=== PATIENT | female | born 1975 | race Two or more races ===

== ENCOUNTER 2025-04-08 09:02 | Outpatient (RCR) | payer MEDICAID, SELFPAY ==
[2025-04-08 09:45] LABS: HCG Qualitative,Urine Negative
--- NOTE | 2025-04-08 10:00 | XR_ITS ---
Examination: [place], hepatobiliary radioisotope scan Gallbladder ejection fraction study. Date and time of exam: April 08, 2025 1003 hours INDICATIONS: Right upper abdominal pain radiating to the back 9 months with heartburn Technique: 5.8 mCi of 99M Hepatolite administered. Serial imaging then obtained from immediate through 60 minutes. 1.6 mcg selective catheter Kinevac administered for gallbladder ejection fraction study. Findings: Radioisotope activity within the liver is reasonably homogenous. Gallbladder, common bile duct small bowel activity noted Impression: Gallbladder activity Abnormal gallbladder ejection fraction, 19%, normal greater than 35%
== END 2025-04-13 23:59 | disposition home or self-care (01) ==
LOC: SNUC 09:02
PROVIDERS: PCP Family Medicine; Referring Provider Physician Assistant; Visit Provider Physician Assistant
DX: R93.2 Abnormal findings on diagnostic imaging of liver and biliary tract (principal); Z32.00 Encounter for pregnancy test, result unknown
CPT/HCPCS: 78227; 81025; A9537; J2805

== ENCOUNTER 2025-05-01 14:45 | Emergency (ER) | payer MEDICAID, SELFPAY ==
[2025-05-01] VITALS (7 sets, daily range): BP systolic 124–131; BP diastolic 55–81; PULSE 99–147; RESP 16–20; TEMP 36.7–37.8; O2SAT 97–100; BMI 31.5
--- NOTE | 2025-05-01 15:14 | EKG_ITS ---
[facility] Test Date: 2025-05-01 Pat Name: LEXII OLIVARES Department: Room: - Gender: Female [employer]: : 1975 Requested By: ED Temporary Provider Order Number: [id number] Reading MD: ED Temporary Provider Measurements Intervals Brock Rate: 133 P: 53 TX: 155 QRS: 5 QRSD: 97 T: 34 QT: 285 QTc: 425 Interpretive Statements SINUS TACHYCARDIA ST DEVIATION AND MODERATE T-WAVE ABNORMALITY, CONSIDER ANTEROLATERAL ISCHEMIA [-0.1+ mV T-WAVE IN V3-V6] No previous ECG available for comparison /store/S0/[id number]/[id number].pdf
--- NOTE | 2025-05-01 15:32 | XR_ITS ---
Examination: AP chest single view Technique one AP portable upright chest single view Date and time: May 01, 2025 1541 hours INDICATIONS: Chest pain fever beginning one week ago. FINDINGS: Normal heart size Lungs are clear. The osseous structures are intact IMPRESSION: No active disease
--- NOTE | 2025-05-01 15:33 | XR_ITS ---
Examination: Abdomen sonogram, Limited Date and time of exam: May 01, 2025 1553 hours INDICATIONS: Right upper abdominal pain this week. Technique: Real-time kahn scale transabdominal sonographic images of the upper abdomen obtained. Findings: Negative for gallstones Normal gallbladder wall 0.2 cm Normal common bile duct 0.3 cm. Pancreatic head 2.4 cm. Liver 13.1 cm fatty infiltration no focal liver lesions. Normal hepatopedal portal venous flow. Patent IVC. IMPRESSION: Normal gallbladder Fatty infiltration throughout the liver
[2025-05-01 15:57] LABS: Lactate (Lactic Acid) 2.1 mMol/L (0.4-2.0)
[2025-05-01 15:59] LABS: Basophils # (Auto) 0.1 Thou/mm3 (0.0-0.2); Basophils % (Auto) 1 % (0-2.5); Eosinophils # (Auto) 0.3 Thou/mm3 (0.0-0.5); Eosinophils % (Auto) 3 % (0-10); Hematocrit 38.7 % (36.0-46.0); Hemoglobin 12.4 g/dL (12.0-16.0); Immature Granulocytes Auto 0.02 Thou/mm3 (0.00-0.00); Lymphocytes # (Auto) 1.2 Thou/mm3 (1.0-4.8); Lymphocytes % (Auto) 14 % (10-50); Mean Corpuscular HGB Conc 32.0 g/dl (31.0-37.0); Mean Corpuscular Hemoglobin 27.1 pg (25.0-35.0); Mean Corpuscular Volume 85 fL (80-100); Monocytes # (Auto) 0.6 Thou/mm3 (0.0-0.8); Monocytes % (Auto) 6 % (0-12); Neutrophils # (Auto) 6.8 Thou/mm3 (1.8-7.7); Neutrophils % (Auto) 76 % (37-80); Nucleated Red Blood Cell # 0.00 Thou/mm3 (0.00-0.00); Nucleated Red Blood Cell % 0 /100 WBC (0); Platelet Count 323 Thou/mm3 (140-440); RDW Standard Deviation 47.7 fL (36.4-46.3); Red Blood Count 4.58 Miln/mm3 (4.00-5.20); White Blood Count 8.9 Thou/mm3 (3.6-11.0)
[2025-05-01 16:18] LABS: INR 1.0 (0.9-1.3); Partial Thromboplastin Time 25.8 Seconds (22.0-36.0); Prothrombin Time 11.0 Seconds (9.0-12.2)
[2025-05-01 16:29] LABS: B-Type Natriuretic Peptide 74 pg/mL (0-100)
[2025-05-01 16:33] LABS: Alanine Aminotransferase 26 U/L (10-49); Albumin, Serum 4.3 gm/dL (3.5-5.0); Albumin/Globulin Ratio 1.4 (1.2-2.2); Alkaline Phosphatase 99 U/L (46-116); Anion Gap 9 (7-16); Aspartate Amino Transferase 29 U/L (0-34); BUN/Creatinine Ratio 13 Ratio (12-20); Bilirubin,Total 0.3 mg/dL (0.3-1.2); Blood Urea Nitrogen 10 mg/dL (9-23); Calcium 9.1 mg/dL (8.3-10.6); Calcium (Corrected) 9.1 mg/dL (8.5-10.1); Carbon Dioxide 24.4 mMol/L (20.0-31.0); Chloride 109 mMol/L (98-107); Creatinine (Component) 0.8 mg/dL (0.6-1.3); Estimated Creatinine Clearance 80.9 mL/min (>60); Globulin 3.1 gm/dL (2.3-3.5); Glucose 142 mg/dL (74-106); Lipase 28 U/L (12-53); Magnesium 1.6 mg/dL (1.6-2.6); Osmolality,Calculated 284 (275-295); Potassium 3.6 mMol/L (3.4-5.1); Procalcitonin < 0.04 ng/ml (0.0-0.49); Sodium 142 mMol/L (136-145); Total Protein 7.4 gm/dL (5.7-8.2); Troponin I < 0.002 ng/mL (0.0-0.045); eGFR > 60 See Note
--- NOTE | 2025-05-01 17:05 | PD.EDCHEST ---
ED Chest Pain RME/HPI General Chief Complaint: Arrhythmia/Palpitations Stated Complaint: HR 147, SOB, ABD PAIN; SENT BY [facility] Time Seen by Provider: 05/01/25 15:31 Arrival date/time: 05/01/25 14:45 RME / HPI RME / HPI narrative: 49 year old female with history of hypertension currently on Lisinopril presents to the ED referred by PCP at [facility] for evaluation of chest pressure and itchy throat beginning last night. Accompanied by chills, cough, orthopnea, and nausea. States she consulted her PCP today and while in office noted her HR to be 147. Reports she was on Propanolol 1 year ago for irregular heart rhythm. 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 No other associated symptoms reported. Denies fevers. Denies vomiting, diarrhea, constipation. Denies dysuria, urinary frequency and urgency. Related Data Previous Rx's ?Medication ?Instructions ?Recorded ibuprofen 600 mg tablet 1 tab PO [id number] PRN PAIN #30 tabs 10/14/13 aspirin 81 mg tablet,delayed 81 mg PO QDAY #30 tabs 12/10/17 release (Adult Aspirin Regimen) nitrofurantoin 100 mg PO Q12H 3 days #6 caps 05/01/25 monohydrate/macrocrystals 100 mg capsule (Macrobid) Allergies Allergy/AdvReac Type Severity Reaction Status Date / Time sulfamethoxazole (From Allergy Severe Swelling Verified 05/01/25 14:49 Bactrim) of Lip/Tongue/Throat trimethoprim (From Bactrim) Allergy Severe Swelling Verified 05/01/25 14:49 of Lip/Tongue/Throat Review of Systems Review of Systems Systems Reviewed: All systems reviewed, normal except as documented Past Medical History Past Medical History CARDIAC: Positive Hypertension Social History SMOKING STATUS: Never smoker ED Exam Narrative Physical exam: GENERAL APPEARANCE: alert and oriented x 4, well-developed, well-nourished, no acute distress HEENT: Normocephalic, atraumatic; pupils equal, round, reactive to light; EOMI; mucous membranes pink, moist; oropharynx clear NECK: Supple LUNGS: CTABL; no wheezes, no rales, no rhonchi HEART: Tachycardic; normal S1, S2; no murmurs ABDOMEN: non distended; normal BS; soft, no tenderness, no guarding, no rebound; no masses, no organomegaly, no hernia BACK: no CVA tenderness EXTREMITIES: atraumatic; no edema NEUROLOGIC: awake; alert and oriented x4; cranial nerves II-XII grossly intact; no focal sensory or motor deficits PSYCHIATRIC: appropriate mood and affect SKIN: warm, dry, normal color; no rashes Course Quality Measures none Orders Category Date Time Status Bedside COVID-19 Antigen Test NOW Care 05/01/25 16:16 Completed Bedside Influenza A&B Antigen Test NOW Care 05/01/25 16:16 Completed Flower Shop Laborer/Designer NOW Care 05/01/25 15:32 Completed EKG (ED ONLY) *Do not use* NOW Care 05/01/25 15:15 Completed EKG (ED Only) Stat Exams 05/01/25 15:14 Draft US abdomen limited Stat Exams 05/01/25 15:33 Completed XR chest 1V portable Stat Exams 05/01/25 15:32 Completed B-Type Natriuretic Peptide Stat Lab 05/01/25 15:37 Completed Blood Culture (Lab) Stat Lab 05/01/25 15:38 Received CBC Stat Lab 05/01/25 15:37 Completed Comprehensive Metabolic Panel Stat Lab 05/01/25 15:37 Completed D-Dimer Stat Lab 05/01/25 15:37 Completed Lactate (Lactic Acid) Stat Lab 05/01/25 15:37 Completed Lipase Stat Lab 05/01/25 15:37 Completed Magnesium Stat Lab 05/01/25 15:37 Completed Partial Thromboplastin Time Stat Lab 05/01/25 15:37 Completed Procalcitonin Stat Lab 05/01/25 15:37 Completed Prothrombin Time with INR Stat Lab 05/01/25 15:37 Completed Strep A Rapid Stat Lab 05/01/25 17:51 Completed Troponin I Stat Lab 05/01/25 15:37 Completed Urinalysis Stat Lab 05/01/25 17:36 Completed Urine Culture Stat Lab 05/01/25 17:36 Received Morphine Inj Med 05/01/25 16:07 Discontinued 5 mg IVP X1 ONE Ondansetron Inj [Zofran Inj] Med 05/01/25 16:07 Discontinued 4 mg IVP X1 ONE Sodium Chloride 0.9% 1000 ml [Ns] 1,000 ml Med 05/01/25 16:07 Discontinued IV 999 mls/hr Reevaluation(s) Reevaluation #1: We reviewed all the results, analysis, and treatment plans. Patient is amenable to discharge. Strict return precautions were outlined. Patient was discharged in stable condition. Vital Signs Vital signs: Vital Signs Temperature 99.5 F 05/01/25 14:52 Pulse Rate 147 H 05/01/25 14:52 Respiratory Rate 20 05/01/25 14:52 Blood Pressure 131/73 H 05/01/25 14:52 Pulse Oximetry (%) 97 05/01/25 14:52 Oxygen Delivery Method Room Air 05/01/25 14:52 Pulse ox is 97% on room air which is adequate. Chest Pain MDM Narrative MDM Narrative:: IKatlyn am scribing for and in the presence of Dr. Mir. Patient data External records reviewed:: [facility] previous records (I reviewed ED visit on 11/07/2023 ) Clinical information provided by:: patient Social determinants that could affect healthcare access:: none Patient has the following chronic illnesses:: HTN How is presenting disease/condition affected by chronic disease/condition?: exacerbated by Evaluation data The following diagnostics were reviewed and interpreted by me:: lab results, radiology exam(s) and EKG tracing(s) (Sinus tachycardia, rate 133, Q-wave in lead III, slight depression in V3 V4 V5 V6, no reciprocal elevations ) Lab and/or radiology exams considered but not ordered:: None Interpretation Summary: Ordering Physician: Tammy Mir MD Date of Service: 05/01/25 Procedure(s): XR chest 1V portable Accession Number(s): [id number] cc: Bossman Champagne MD; Tammy Mir MD~ Examination: AP chest single view Technique one AP portable upright chest single view Date and time: May 01, 2025 1541 hours INDICATIONS: Chest pain fever beginning one week ago. FINDINGS: Normal heart size Lungs are clear. The osseous structures are intact IMPRESSION: No active disease Dictated By: Bossman Champagne MD Signed By: <Electronically signed by Bossman Champagne MD in OV> 05/01/25 0642 Ordering Physician: Tammy Mir MD Date of Service: 05/01/25 Procedure(s): US abdomen limited Accession Number(s): [id number] cc: Kali Farr MD; Bossman Champagne MD; Tammy Mir MD~ Examination: Abdomen sonogram, Limited Date and time of exam: May 01, 2025 1553 hours INDICATIONS: Right upper abdominal pain this week. Technique: Real-time kahn scale transabdominal sonographic images of the upper abdomen obtained. Findings: Negative for gallstones Normal gallbladder wall 0.2 cm Normal common bile duct 0.3 cm. Pancreatic head 2.4 cm. Liver 13.1 cm fatty infiltration no focal liver lesions. Normal hepatopedal portal venous flow. Patent IVC. IMPRESSION: Normal gallbladder Fatty infiltration throughout the liver Dictated By: Bossman Champagne MD Signed By: <Electronically signed by Bossman Champagne MD in OV> 05/01/25 1659 Medications / Prescriptions Medications or Prescriptions considered but not ordered:: None Medication administrations:: Medication Administration History Discontinued Medications Sodium Chloride (Ns) 1,000 mls @ 999 mls/hr IV .Q1H1M ONE Stop: 05/01/25 17:07 Last Infusion: 05/01/25 19:08 Dose: Infused Documented By: Admin: 05/01/25 17:22 Dose: 999 mls/hr Documented By: DOMINIQUE Morphine Sulfate (Morphine Sulf Inj 10 Mg/Ml Vial) 5 mg IVP X1 ONE Stop: 05/01/25 16:08 Last Admin: 05/01/25 17:23 Dose: 5 mg Documented By: DOMINIQUE Ondansetron HCl (Ondansetron Inj 2 Mg/Ml Inj 2 Ml) 4 mg IVP X1 ONE Stop: 05/01/25 16:08 Last Admin: 05/01/25 17:22 Dose: 4 mg Documented By: DOMINIQUE See above Consultations Consultation(s) initiated? (list below): No Diagnosis Chest Pain Differential Diagnosis: pneumothorax, stable angina, unstable angina pectoris, atypical chest pain, st elevation myocardial infarction, costochondritis and chest pain Most likely diagnosis given after review of the tests above:: Covid Sinus tachycardia UTI Admission Indicated Admission indicated?: not indicated Admission Request Was there a request for admission?: No Disposition Plan Disposition Plan: Discharge Discharge Attestation Discharge Attestation: The patient and all family members were given an opportunity to ask questions and understood the discharge instructions. Discharge instructions specifically effects, indications for sooner follow up or return to the emergency department, and the expected course of current diagnosis. Patient condition: Stable Discharge Plan Plan Patient Disposition: HOME (Self Care) Prescriptions/Referrals Prescriptions/Med Rec: New nitrofurantoin monohyd/m-cryst [Macrobid] 100 mg capsule 100 mg PO Q12H 3 Days Qty: 6 0RF Rx Instructions: must administer with a meal/food No Action ibuprofen 600 MG tablet 1 tab PO [id number] PRN (Reason: PAIN) Qty: 30 0RF aspirin [Adult Aspirin Regimen] 81 mg tablet,delayed release (DR/EC) 81 mg PO QDAY Qty: 30 0RF Referrals: Kali Farr MD [Primary Care Provider] - In 1 week Problem List Clinical Impression: COVID-19, Sinus tachycardia, UTI (urinary tract infection) Patient/Caregiver Discharge Instructions Education Materials: COVID-19 Home Care Print Language: Maori Stand Alone Forms: Fabi Award Info., Patient Portal Info Letter
[2025-05-01] MEDS: ONDANSETRON INJ 2 MG/ML INJ 2 ML 4 MG IVP (17:22)
[2025-05-01] MEDS: SODIUM CHLORIDE 0.9% 1000 ML 1,000 ML 999 ML IV (17:22)
[2025-05-01] MEDS: MORPHINE SULF INJ 10 MG/ML VIAL 5 MG IVP (17:23)
[2025-05-01 17:42] LABS: D-Dimer 368 ng/mL (<600)
[2025-05-01 17:49] LABS: Collection Type, Urine Clean Catch
[2025-05-01 17:54] LABS: Bacteria,Urine Rare; Bilirubin,Urine Negative (Negative); Blood,Urine Trace (Negative); Clarity,Urine Clear (Clear/Hazy); Color,Urine Lt-Yellow (Lt Yel-Yel); Glucose, Urine Negative (Negative); Ketones,Urine Negative (Negative); Leukocyte Esterase,Urine Positive (Negative); Nitrite,Urine Negative (Negative); PH,Urine 6.5 (5.0-7.0); Protein,Urine Negative (Neg - Trace); RBC,Urine 4 /hpf (0-3); Specific Gravity,Urine 1.018 (1.001-1.035); Squamous Epithelial Cell,Urine 2 /hpf (0-5); Urobilinogen,Urine Negative mg/dL (0.0-1.0); WBC,Urine 11 /hpf (0-5)
[2025-05-01 18:33] LABS: Strep A Rapid Negative (Negative)
[2025-05-01 18:56] LABS: Reflex Lactate? Y
== END 2025-05-01 19:27 | disposition home or self-care (01) ==
PROVIDERS: Emergency Provider Emergency Medicine; PCP Family Medicine
DX: U07.1 COVID-19 (principal); N39.0 Urinary tract infection, site not specified; K76.0 Fatty (change of) liver, not elsewhere classified; R00.0 Tachycardia, unspecified; I10 Essential (primary) hypertension
CPT/HCPCS: 36415; 71045; 76705; 80053; 81001; 83605; 83690; 83735; 83880; 84145; 84484; 85025; 85379; 85610; 85730; 87040; 87086; 87400; 87651; 87811; 93005; 96361; 96374; 96375; 99283; J2270; J2405; J7030

== ENCOUNTER 2025-05-29 10:30 | Outpatient (RCR) | payer MEDICAID, SELFPAY ==
--- NOTE | 2025-05-14 11:01 | PTNOTE_ITS ---
PT OP Initial Eval Patient Information Outpatient Physical Therapy Treatment Date: 05/14/25 Visit Reasons: Pain in RT shoulder Medical Diagnosis: M25.511 Treatment Dx #1: R shoulder pain Start of Care: 05/14/25 Date of Onset: 3 months ago Smoking Status Smoking Status: Never smoker Initial Assessment Subjective: Pt is 50 yr old panamanian speaking female reports R shoulder pain since falling off a treadmill at home. Since then she has pain is constant and it goes numb if she lays on that side. Increased pain with reaching OH and lifting things and HH chores. PMH: HTN, arrythmia Imaging: Xray negative according to provider notes Pt goal: to get rid of the pain in R shoulder Objective: R shoulder AROM: ? FF: 95 deg with ++pain ? Abd: 90 deg ? ER: 65 deg ? HBB: to R glute ? Strength: 3+/5 in all planes ? PROM: end-range pain Jany Sauer: positive Amadna's: positive TTP: long head of biceps high Assessment: Pt presents with decreased ROM and pain into FF consistent with labral tear. Pt not likely going to benefit from skilled therapy but we will try some visits to see if she feels any relief. Poor rehab potential to meet goals. PT recommends further diagnostic imaging of R shoulder such as MRI. Short Term and Finisher Accordion Goals 1. Ind with HEP ? 2. Improved AROM of R shoulder to at least 135 deg FF, 125 deg abduction and 90 deg ? ER ? 3. Improved HBB ROM to L3 ? 4. Pt will reach OH x10 with <=4/10 pain Treatment Plan 1. Manual therapy ? 2. Therex ? 3. Modalities as indicated, moist heat pack, ice, electrical stimulation, ? Frequency and Duration: 1-2x a week for 4 weeks plus the evaluation Certification Dates: 05/14/25 to 07/12/25 Procedure Charges OP PT Eval Mod Complex 30 minutes: Yes
--- NOTE | 2025-05-21 16:17 | PT.ODAYNRPT ---
PT Outpatient Daily Note OP Daily Note Outpatient Physical Therapy Treatment Date: 05/21/25 Visit Reasons: Pain in RT shoulder Subjective: Same as time of evaluation Objective: See f/S for therex MHP R shoulder x5' Gave TB and updated HEP Assessment: Some pain with FF AAROM therex today in the R shoulder Plan: Continue per POC Length of Time (minutes) of Treatment: 30 Minutes Procedure Charges Therapeutic Exercise 30 minutes: Yes
--- NOTE | 2025-05-29 13:05 | PT.ODAYNRPT ---
PT Outpatient Daily Note OP Daily Note Outpatient Physical Therapy Treatment Date: 05/29/25 Visit Reasons: Pain in RT shoulder Subjective: Continued R shoulder pain unchanged Objective: See f/S for therex MHP R shoulder x5' Assessment: Some pain with FF AAROM therex today in the R shoulder Plan: Continue per POC Length of Time (minutes) of Treatment: 30 Minutes Procedure Charges Therapeutic Exercise 30 minutes: Yes
--- NOTE | 2025-05-29 16:09 | PT.ODAYNRPT ---
PT Outpatient Daily Note OP Daily Note Outpatient Physical Therapy Treatment Date: 05/29/25 Visit Reasons: Pain in RT shoulder Subjective: Pt brought in by family member, no complaints. Objective: Please see flow sheet for ther ex list. Assessment: Pt instructed on seated knee flexion, pt can reach ~95 deg then guards not able to go further than that. Plan: Continue with pOC. Length of Time (minutes) of Treatment: 30 Minutes Procedure Charges Therapeutic Exercise 30 minutes: Yes
== END 2025-06-02 23:59 | disposition home or self-care (01) ==
LOC: CPTX 10:30
PROVIDERS: PCP Family Medicine; Referring Provider Family Medicine; Visit Provider Family Medicine
DX: M25.511 Pain in right shoulder (principal); I10 Essential (primary) hypertension
CPT/HCPCS: 97110; 97162

== ENCOUNTER 2025-06-18 15:30 | Outpatient (RCR) | payer MEDICAID, SELFPAY ==
--- NOTE | 2025-06-11 15:41 | PT.ODAYNRPT ---
PT Outpatient Daily Note OP Daily Note Outpatient Physical Therapy Treatment Date: 06/11/25 Visit Reasons: PAIN IN RT SHOULDER Subjective: Continued R shoulder pain unchanged Objective: See f/S for therex MHP R shoulder x5' Assessment: Some pain with FF AAROM therex today in the R shoulder Plan: Reassess Length of Time (minutes) of Treatment: 30 Minutes Procedure Charges Therapeutic Exercise 30 minutes: Yes
--- NOTE | 2025-06-18 17:55 | PT.ODS1RPT ---
PT OP Progress/Discharge Note Date of Service: 06/18/25 Progress Note/DC Note Progress Note/Discharge Note: DC Note Patient Information Visit Reasons: PAIN IN RT SHOULDER Service Continue Service or Discharge: Discharge Status Subjective: Continued R shoulder pain unchanged Objective: See f/S for therex MHP R shoulder x5' R shoulder AROM: FF: 90 deg Abd: 90 deg ER: 65 deg Strength: 3-/5 in all planes TTP: high of long head of biceps Assessment: Pt has attended the eval and 4/4 Rx sessions with limited progress with goals due to continued pain. She isn't making progress with goals and pain is unchanged with reaching and moving it. PT recommended further diagnostic imaging of R shoulder such as MRI. Thank you for your referrals. Plan: D/C Procedure Charges Therapeutic Exercise 30 minutes: Yes
== END 2025-07-02 23:59 | disposition home or self-care (01) ==
LOC: CPTX 15:30
PROVIDERS: Referring Provider Family Medicine
DX: M25.511 Pain in right shoulder (principal); R20.0 Anesthesia of skin; I10 Essential (primary) hypertension
CPT/HCPCS: 97110

== ENCOUNTER 2025-09-18 09:22 | Outpatient (RCR) | payer MEDICAID, SELFPAY ==
--- NOTE | 2025-09-18 09:59 | PTNOTE_ITS ---
PT OP Initial Eval Patient Information Outpatient Physical Therapy Treatment Date: 09/18/25 Visit Reasons: RT arm pain Medical Diagnosis: Z71.82 Treatment Dx #1: R shoulder pain Date of Onset: December 2024 Smoking Status Smoking Status: Never smoker Initial Assessment Subjective: Pt is 50 yr old japanese speaking female reports R shoulder pain since falling off a treadmill at home. Since then she has pain is constant and it goes numb if she lays on that side. Increased pain with reaching OH and lifting things and HH chores. PMH: HTN, arrythmia Imaging: Xray negative according to provider notes Pt goal: to get rid of the pain in R shoulder Objective: R shoulder AROM: ? FF: 93 deg with ++pain ? Abd: 90 deg ? ER: 60 deg ? HBB: to R glute ? Strength: 3-/5 in all planes ? PROM: end-range pain Jany Sauer: positive Amanda's: positive TTP: high of long head of biceps Assessment: Pt presents with decreased ROM and pain into FF consistent with labral (SLAP) tear. Pt not likely going to benefit from skilled therapy but we will try some visits to see if she feels any relief. Poor rehab potential to meet goals. PT recommends further diagnostic imaging of R shoulder such as MRI. Short Term and Jail Goals 1. Ind with HEP ? 2. Improved AROM of R shoulder to at least 135 deg FF, 125 deg abduction and 90 deg ? ER ? 3. Improved HBB ROM to L3 ? 4. Pt will reach OH x10 with <=4/10 pain Treatment Plan 1. Manual therapy ? 2. Therex ? 3. Modalities as indicated, moist heat pack, ice, electrical stimulation ? Frequency and Duration: 1-2x a week for 6 weeks plus the evaluation Certification Dates: 09/18/25 to 12/17/25 Procedure Charges OP PT Eval Mod Complex 30 minutes: Yes
== END 2025-10-02 23:59 | disposition home or self-care (01) ==
LOC: CPTX 09:22
PROVIDERS: PCP Student in an Organized Health Care Education/Training Program; Referring Provider Student in an Organized Health Care Education/Training Program; Visit Provider Student in an Organized Health Care Education/Training Program
DX: M25.511 Pain in right shoulder (principal); R20.0 Anesthesia of skin; I10 Essential (primary) hypertension; Z71.82 Exercise counseling
CPT/HCPCS: 97162